=== PATIENT | female | born 1980 | race Caucasian/White ===

== ENCOUNTER → 2016-08-04 | Outpatient (CLI) | payer OTHER ==
[2016-08-04 14:50] LABS: CH 32.4; CHCM 35.5; HDW 2.79; HGB 12.6 gm/dL (11.4-16.0); MCH 31.3 pg (25.0-35.0); MCHC 34.1 g/dL (31.0-37.0); MCV 91.9 fL (80.0-100.0); Mean Platelet Volume 6.4; RBC 4.03 m/uL (3.80-5.40); WBC 9.3 k/uL (3.8-10.6)
[2016-08-04 14:56] LABS: Glucose 82 mg/dL (74-99); Non-African American GFR(MDRD) >60 (>60 ml/min/1.73 sqM)
[2016-08-04 15:28] LABS: Hepatitis B Surface Ag Index 0.05
--- NOTE | 2016-08-04 15:37 | US ---
EXAMINATION TYPE: US OB <= 14 wk fetus DATE OF EXAM: 08/04/2016 2:25 PM COMPARISON: NONE CLINICAL HISTORY: Z36 Confirm Dates. EXAM PERFORMED: Transabdominal (TA) EXAM MEASUREMENTS: GESTATIONAL AGE / DATING Physician Established: not established Dates by LMP: (12 weeks/0 days) EDC: 02/16/17 Dates by First Scan: no prior Dates by Current Scan for: (13 weeks/1 days) EDC: 02/08/17 MATERNAL ANATOMY Uterus: 15.3 x 6.7 x 8.5cm Right Ovary: unable to visualize Left Ovary: 3.2 x 2.7 x 1.3cm Post CDS / Adnexa: appears wnl Presence of free fluid: no Presence of corpus luteal cyst: yes, hypoechoic area left ovary = 1.4 x 1.1 x 1.3cm GESTATION / SURVEY CRL: 6.8cm (13 weeks/1 days) Yolk Sac (normal less than 6mm): not seen Heart Rate: 155 bpm Rhythm: Normal IUP: Viable IUP Date of LMP: 05/12/16 Beta HcG (if available): unavailable TECHNOLOGIST IMPRESSION: Single viable IUP 13wks/1day with JULIETA of 02/08/17. Probable corpus luteum l eft ovary. IMPRESSION: Viable intrauterine gestation with a gestational age of 13 weeks 1 day +/- 7 days. Estimated date of confinement based on this examination is a 2017.
== END | disposition home or self-care (01) ==
LOC: RADUSWWP 13:55
PROVIDERS: ATTEND Obstetrics & Gynecology
DX: Z36 Encounter for antenatal screening of mother (principal); Z34.01 Encounter for supervision of normal first pregnancy, first trimester; Z3A.13 13 weeks gestation of pregnancy
CPT/HCPCS: 76801; 82565; 82947; 85027; 86762; 86780; 86850; 86900; 86901; 87340

== ENCOUNTER → 2016-08-06 | Outpatient (CLI) | payer OTHER ==
[2016-08-07 08:26] LABS: Mis test requested (Non-blood) TP Urine 24Hr
== END | disposition home or self-care (01) ==
LOC: LABPRL 16:17
PROVIDERS: ATTEND Obstetrics & Gynecology
DX: I10 Essential (primary) hypertension (principal)
CPT/HCPCS: 81050; 84156

== ENCOUNTER → 2016-09-15 | Outpatient (CLI) | payer OTHER ==
--- NOTE | 2016-09-15 11:34 | US ---
EXAMINATION TYPE: US OB anatomy transabd DATE OF EXAM: 09/15/2016 11:20 AM COMPARISON: Previous study dated 08/04/2016. HISTORY: LGA TECHNIQUE: EXAM MEASUREMENTS: GESTATIONAL AGE / DATING Physician Established: (19 weeks/1 days) EDC: 02/08/2017 Dates by LMP: (18 weeks/0 days) EDC: 02/16/2017 Dates by First Scan: (19 weeks/0 days) EDC: 02/08/2017 Dates by Current Scan for: (19 weeks/2 days) EDC: 02/07/2017 SURVEY IUP: Single PLACENTA: Anterior PREVIA: No previa CONRAD: 11.1 cm Normal CERVICAL LENGTH (transabdominal: norm > 3.0cm): 4.2 cm BIOMETRY PRESENTATION: Breech BPD: 4.6 cm 20 weeks / 0 days HC: 16.3 cm 19 weeks / 0 days AC: 13.7 cm weeks / 1 days FL: 3.0 cm weeks / 3 days ESTIMATED WEIGHT IN GRAMS: 282 grams ESTIMATED WEIGHT IN LBS/OZS: 0 lbs. 10 oz. WEIGHT PERCENTAGE BASED ON ESTABLISHED DATE: 52 % HC/AC: 1.2 FL/AC: 22 HEART RATE: 152 bpm RHYTHM: Normal ANATOMY SEEN (within normal limits): * Lateral Vent (< 1 cm) 0.7 cm * Cisterna Magna (< 1.1 cm) 0.4 cm * Nuchal Fold (< 0.6 cm) 0.2 cm * Cerebellum (varies with age) 1.9 cm Choroid Plexus (bilateral) Midline Falx Cavus Septi Pellucidi Four Chamber Heart Outflow tracts: LVOT/RVOT Stomach Situs Nose / Lips Diaphragm Kidneys (bilateral) Bladder Cord Insert Three Vessel Cord Longitudinal Spine Transverse Spine Arms (bilateral) Legs (bilateral) Growth according to dates ALAN contraction seen at beginning of scan is beginning to subside at end of scan and it is visible th at placental tip is not near os. IMPRESSION: ODONNELL FETUS PRESENT IN A BREECH PRESENTATION WITH A GESTATIONAL AGE OF 19 WEEKS 2 DAYS +/- 12 DAY S. ESTIMATED DATE OF CONFINEMENT BASED ON THIS EXAMINATION IS 02/07/2017
== END | disposition home or self-care (01) ==
LOC: RADUSWWP 10:44
PROVIDERS: ATTEND Obstetrics & Gynecology
DX: O32.1XX0 Maternal care for breech presentation, not applicable or unspecified (principal); Z3A.19 19 weeks gestation of pregnancy
CPT/HCPCS: 76811

== ENCOUNTER → 2016-10-22 | Outpatient (CLI) | payer OTHER ==
[2016-10-22 09:59] LABS: CH 32.9; CHCM 35.3; HCT 37.1 % (34.0-46.0); HDW 3.07; HGB 12.7 gm/dL (11.4-16.0); MCH 32.1 pg (25.0-35.0); MCHC 34.2 g/dL (31.0-37.0); Mean Platelet Volume 6.4; RBC 3.94 m/uL (3.80-5.40); RDW 14.3 % (11.5-15.5); WBC 9.3 k/uL (3.8-10.6)
== END | disposition home or self-care (01) ==
LOC: LABWHC1 08:05
PROVIDERS: ATTEND Obstetrics & Gynecology
DX: Z34.02 Encounter for supervision of normal first pregnancy, second trimester (principal); Z3A.00 Weeks of gestation of pregnancy not specified
CPT/HCPCS: 36415; 82950; 85027

== ENCOUNTER 2016-11-18 12:29 | Outpatient (CLI) | payer OTHER ==
[2016-11-18] MEDS ORDERED: MAGNESIUM SULFATE-WATER PMX 4 GM in WATER FOR INJECTION 50 50ML.BAG IVPB ONE (13:02)
[2016-11-18 13:03] LABS: Basophils % (A) 0 %; CH 33.4; Eosinophils # (A) 0.1 k/uL (0-0.7); Eosinophils % (A) 2 %; HCT 36.5 % (34.0-46.0); HDW 2.94; HGB 12.5 gm/dL (11.4-16.0); Luc % (Auto) 1; Lymphocytes # (A) 1.1 k/uL (1.0-4.8); Lymphocytes % (A) 12 %; MCHC 34.3 g/dL (31.0-37.0); MCV 93.3 fL (80.0-100.0); Mean Platelet Volume 7.9; Monocytes # (A) 0.4 k/uL (0-1.0); Monocytes % (A) 5 %; Neutrophils # (A) 6.8 k/uL (1.3-7.7); Neutrophils % (A) 80 %; RBC 3.91 m/uL (3.80-5.40); RDW 13.6 % (11.5-15.5); WBC 8.5 k/uL (3.8-10.6); WBC (Perox) 8.81
[2016-11-18] MEDS ORDERED: LABETALOL 5 MG/ML VIAL MDV IVP SCH (13:15)
[2016-11-18] MEDS ORDERED: LABETALOL 5 MG/ML VIAL MDV IVP ONE (13:15)
[2016-11-18] MEDS ORDERED: MAGNESIUM SULFATE-WATER PMX 20 GM in WATER FOR INJECTION 1 500ML.BAG IV SCH (13:15)
[2016-11-18] MEDS ORDERED: LACTATED RINGERS 1,000 ML IV SCH (13:15)
[2016-11-18 13:17] LABS: ALT 28 U/L (9-52); AST 21 U/L (14-36); Blood Urea Nitrogen 5 mg/dL (7-17); Non-African American GFR(MDRD) >60 (>60 ml/min/1.73 sqM); Uric Acid 3.6 mg/dL (3.7-7.4)
[2016-11-18] MEDS ORDERED: BETAMET ACET-BETAMETH SOD PHOS 6 MG/ML VIAL IM SCH (13:30)
--- NOTE | 2016-11-18 13:41 | P.HPOB ---
History of Present Illness H&P Date: 11/18/16 Chief Complaint: Hypertension in . This patient is a pleasant 36-year-old 1 para 0 female estimated date of confinement 02/08/2017 estimated gestational age 28-2/7 weeks who presented to my office today for OB visit. Patient's history is such that she initially saw me in 11 weeks for her first OB visit. At that time blood pressure was 152- 158/96. Patient has no previous history diagnosis of chronic hypertension but it was assumed at this time. Patient was placed on labetalol 100 mg twice a day. She was also started on low-dose aspirin at that time. 24-hour urine was done which was normal however most recently repeat 24-hour urine showed her to be 667 mg. Patient was referred to maternal- medicine which she saw on Thursday. A repeat 24-hour urine did come down however today blood pressure in the office is 162/100. Patient denies headaches or other signs and symptoms. Blood work today is normal. Pressures here in labor and delivery around 170s over 100s. I did discuss this with Dr. Melba Voss the maternal- medicine specialist and she recommended treatment with IV labetalol, magnesium sulfate, Celestone, and transferred to the tertiary facility for further evaluation and treatment. Review of Systems Constitutional: Denies chills, Denies fever Ears, nose, mouth and throat: Denies headache, Denies sore throat Cardiovascular: Denies chest pain, Denies shortness of breath Respiratory: Denies cough Gastrointestinal: Denies abdominal pain, Denies diarrhea, Denies nausea, Denies vomiting Genitourinary: Reports , Denies dysuria, Denies hematuria Menstruation: Reports amenorrhea Past Medical History Past Medical History: No Reported History History of Any Multi-Drug Resistant Organisms: None Reported Past Surgical History: No Surgical Hx Reported Smoking Status: Never smoker Past Drug Use History: None Reported Medications and Allergies Home Medications Medication Instructions Recorded Confirmed Type Aspirin [Adult Low Dose Aspirin EC] 81 mg PO 11/18/16 History Labetalol [Trandate] 100 mg PO BID 11/18/16 11/18/16 History Pnv,Calcium 72/Iron/Folic Acid 1 tab PO DAILY 11/18/16 11/18/16 History [ Plus Tablet] Allergies Allergy/AdvReac Type Severity Reaction Status Date / Time Sulfa (Sulfonamide Allergy Rash/Hives Verified 11/18/16 12:34 Antibiotics) Exam - Vital Signs Vital signs: Intake and Output 11/17/16 11/18/16 11/18/16 22:59 06:59 14:59 Other: Weight 66.224 kg Patient Weight 11/19/16 06:59 Weight 66.224 kg - OBG Physical Exam Abdomen: bowel sounds normal, no diffuse tenderness, no bruit present, no guarding noted, no hepatomegaly, no splenomegaly, no mass Uterus: enlarged (Fundal height is 30 cm.) Results Ultrasound per maternal medicine on Thursday showed an appropriately grown fetus with marginal cord insertion. Result Diagrams: 11/18/16 12:47 11/18/16 12:47 Abnormal Lab Results - Last 24 Hours (Table) 11/18/16 Range/Units 12:47 BUN 5 L (7-17) mg/dL Creatinine 0.50 L (0.52-1.04) mg/dL Uric Acid 3.6 L (3.7-7.4) mg/dL Assessment and Plan (1) Hypertension affecting in third trimester Narrative/Plan: This is a pleasant 36-year-old 1 para 0 female 28-2/7 weeks gestation with significant hypertension. At this time blood work and evaluation is not consistent with preeclampsia however this may be significant worsening of chronic hypertension. At this time are going to proceed with magnesium sulfate prophylaxis, antihypertensives, Celestone administration and transfer to maternal- medicine. I discussed this with Dr. Melba Voss and she agrees with this plan. Discussed this in detail with the patient and she is consented to transfer at this time. Status: Acute
--- NOTE | 2016-11-18 13:53 | P.DS ---
Providers Expected date of discharge: 11/18/16 Attending physician: Sahil Smith Primary care physician: Stated None - Discharge Diagnosis(es) (1) Hypertension affecting in third trimester Current Visit: Yes Status: Acute Hospital Course: Please see dictated H&P in this patient's admission and transfer. Brief summary is a pleasant 36-year-old 1 para 0 female 28 2/7 weeks gestation admitted to triage for evaluation of hypertension in the office. Patient continued to have significant blood pressure elevation here in labor and delivery. Preeclampsia labs were negative. I discussed maternal- medicine and they recommended transfer on magnesium sulfate and antihypertensive therapy which was instituted. Patient was transferred stable the EMS to [facility] labor and delivery. Patient Condition at Discharge: Stable Plan - Discharge Summary Discharge Medication List Aspirin [Adult Low Dose Aspirin EC] 81 mg PO 11/18/16 [History] Labetalol [Trandate] 100 mg PO BID 11/18/16 [History] Pnv,Calcium 72/Iron/Folic Acid [ Plus Tablet] 1 tab PO DAILY 11/18/16 [ History] Discharge Disposition: OTHER INSTITUTION NOT DEFINED
[2016-11-18 14:31] LABS: Appearance,Urine Clear (Clear); Bilirubin,Urine Negative (Negative); Glucose,Urine (UA) Negative (Negative); Ketones,Urine Negative (Negative); Leukocyte Esterase,Urine Negative (Negative); Nitrite,Urine Negative (Negative); Protein,Urine Negative (Negative); Specific Gravity,Urine 1.003 (1.001-1.035); UA Billing (MACRO vs. MICRO) CHEM; Urobilinogen,Urine <2.0 mg/dL (<2.0)
== END 2016-11-18 14:13 | disposition short-term general hospital (02) ==
LOC: FBPOP 12:29
PROVIDERS: ATTEND Obstetrics & Gynecology
DX: O16.3 Unspecified maternal hypertension, third trimester (principal); Z3A.28 28 weeks gestation of pregnancy
CPT/HCPCS: 59025; 99215; 96360; 96366; 96372; 96375; 51702; 82565; 84450; 84460; 84520; 84550; 85025; 81003; J3475 ×2; 96367

== ENCOUNTER → 2016-12-25 | Outpatient (CLI) | payer OTHER ==
[2016-12-25 17:52] LABS: CH 32.5; CHCM 35.2; HDW 3.13; HGB 10.4 gm/dL (11.4-16.0); MCH 32.3 pg (25.0-35.0); MCHC 34.8 g/dL (31.0-37.0); Mean Platelet Volume 6.9; RBC 3.23 m/uL (3.80-5.40); RDW 14.3 % (11.5-15.5); WBC 12.3 k/uL (3.8-10.6)
[2016-12-25 18:04] LABS: ALT 88 U/L (9-52); AST 23 U/L (14-36); Blood Urea Nitrogen 14 mg/dL (7-17); Non-African American GFR(MDRD) >60 (>60 ml/min/1.73 sqM)
== END | disposition home or self-care (01) ==
LOC: LABWHC1 16:38
PROVIDERS: ATTEND Obstetrics & Gynecology
DX: I10 Essential (primary) hypertension (principal)
CPT/HCPCS: 36415; 82565; 84450; 84460; 84520; 85027

== ENCOUNTER → 2017-01-08 | Outpatient (CLI) | payer OTHER ==
[2017-01-08 11:57] LABS: CH 32.4; CHCM 34.6; HCT 37.8 % (34.0-46.0); HDW 3.38; HGB 12.8 gm/dL (11.4-16.0); MCH 31.8 pg (25.0-35.0); MCHC 33.8 g/dL (31.0-37.0); MCV 94.2 fL (80.0-100.0); Mean Platelet Volume 6.2; RBC 4.02 m/uL (3.80-5.40); RDW 13.7 % (11.5-15.5); WBC 8.2 k/uL (3.8-10.6)
[2017-01-08 12:09] LABS: ALT 37 U/L (9-52); AST 19 U/L (14-36); Alkaline Phosphatase 102 U/L (38-126); Anion Gap 15 mmol/L; Blood Urea Nitrogen 10 mg/dL (7-17); Carbon Dioxide 24 mmol/L (22-30); Chloride 107 mmol/L (98-107); Glucose 106 mg/dL (74-99); Non-African American GFR(MDRD) >60 (>60 ml/min/1.73 sqM); Potassium 3.9 mmol/L (3.5-5.1); Sodium 146 mmol/L (137-145); Total Bilirubin 0.6 mg/dL (0.2-1.3); Total Protein 7.4 g/dL (6.3-8.2)
== END | disposition home or self-care (01) ==
LOC: LABWHC1 11:10
PROVIDERS: ATTEND Internal Medicine Cardiovascular Disease
DX: I10 Essential (primary) hypertension (principal)
CPT/HCPCS: 36415; 80053; 85027

== ENCOUNTER → 2019-06-07 | Outpatient (CLI) | payer MEDICAID, OTHER ==
--- NOTE | 2019-06-07 09:08 | CT ---
EXAMINATION TYPE: CT sinus wo con DATE OF EXAM: 06/07/2019 COMPARISON: NONE HISTORY: Chronic sinusitis per order. Dizziness for [address] DLP: 705.9 mGycm. Automated Exposure Control for Dose Reduction was Utilized. TECHNIQUE: CT scan of the sinuses is performed without contrast, axial images are obtained, coronal r eformatted images are also reviewed. FINDINGS: The paranasal sinuses including the frontal, ethmoid, sphenoid, and maxillary sinuses bila terally are well-aerated without suspicious opacification or air-fluid level. Mild mucosal thickening posteriorly right ethmoid sinus axial image 34 is present. The ostiomeatal complex is narrowed bilat erally on the coronal images due to antral mucosal thickening but remains patent bilaterally. Nasal s eptum is deviated to left of midline. Visualized portion of mastoid air cells show no abnormal opacification. The globes are intact bilate rally. Visualized portion of brain parenchyma is felt within normal limits. IMPRESSION: Some mild chronic paranasal sinus disease. No acute sinusitis identified.
== END | disposition home or self-care (01) ==
LOC: RADCTMAIN 07:20
PROVIDERS: ATTEND Family Medicine
DX: J32.9 Chronic sinusitis, unspecified (principal)
CPT/HCPCS: 70486

== ENCOUNTER → 2019-08-25 | Outpatient (CLI) | payer MEDICAID ==
--- NOTE | 2019-08-25 07:25 | US ---
EXAMINATION TYPE: US thyroid st tissue head/neck DATE OF EXAM: 08/25/2019 COMPARISON: NONE CLINICAL HISTORY: E04.9 Nontoxic goiter, unspecified. possible enlarged gland visualized by doctor. GLAND SIZE: Right Lobe: 4.4 x 1.7 x 1.7 cm Overall Parenchyma: homogenous Left Lobe: 4.5 x 1.5 x 1.4 cm Overall Parenchyma: homogeneous Isthmus Thickness: 0.4 cm NODULES RIGHT: # of nodules measured on right: 0 LEFT: # of nodules measured on left: 0 ISTHMUS: # of nodules measured in the isthmus: 0 Bilateral neck scanned, no evidence of lymphadenopathy. Few images demonstrate hypervascularity parti cularly of the right thyroid lobe. IMPRESSION: Homogeneous thyroid gland. Some images demonstrate slight hypervascularity. Correlate wit h serum laboratory values to exclude thyroiditis.
== END | disposition home or self-care (01) ==
LOC: RADUSWWP 06:51
PROVIDERS: ATTEND Family Medicine
DX: E07.89 Other specified disorders of thyroid (principal)
CPT/HCPCS: 76536

== ENCOUNTER → 2021-02-08 | Outpatient (CLI) | payer MEDICAID ==
--- NOTE | 2021-02-10 11:04 | CT ---
EXAMINATION TYPE: CT abdomen pelvis w con DATE OF EXAM: 02/08/2021 COMPARISON: None HISTORY: right pelvic pain x1.[address] DLP: 1027 mGycm CONTRAST: CT scan of the abdomen and pelvis is performed with Oral Contrast and with IV Contrast, patient injec ivet with 100 mL of Isovue 300. FINDINGS: LUNG BASES-: No visible nodule. No infiltrate. LIVER/GB: No calcified gallstones. No space occupying hepatic lesion. Biliary tree is of normal ca liber. PANCREAS: No inflammation. No distinct mass. SPLEEN: No splenic enlargement. Splenic cyst identified measuring 2.1 cm. ADRENALS: No nodule. No thickening. KIDNEYS/BLADDER: No hydronephrosis. 6 mm calculus lower pole right kidney. No additional calculi are evident of the right kidney. 2 mm left mid pole calculus seen. Additional 2 mm calculus lower pole l eft kidney. No distinct renal mass. Urinary bladder grossly unremarkable. BOWEL: Normal appendix. Normal bowel caliber. No inflammation. GENITAL ORGANS: No gross abnormality. LYMPH NODES: No greater than 1cm abdominal or pelvic lymph nodes are appreciated. AORTA: No significant abnormality. OSSEOUS STRUCTURES: No significant abnormality is seen. OTHER: No significant additional abnormality is seen. IMPRESSION: 1. Nonobstructing nephrolithiasis. 2. Simple splenic cyst.
== END | disposition home or self-care (01) ==
LOC: RADCTMAIN 14:43
PROVIDERS: ATTEND Family Medicine
DX: N20.0 Calculus of kidney (principal); D73.4 Cyst of spleen
CPT/HCPCS: 74177; Q9967

== ENCOUNTER → 2021-05-15 | Outpatient (CLI) | payer MEDICAID ==
--- NOTE | 2021-05-15 10:31 | CT ---
EXAMINATION TYPE: CT brain wo con DATE OF EXAM: 05/15/2021 COMPARISON: None HISTORY: Dizziness x [address] DLP: [address] of the brain was performed. The ventricles, basal cisterns and sulci overlying the cerebral convexities demonstrate a normal appe arance. There is no evidence for intracranial hemorrhage or sulcal effacement. No mass effects are seen. Osseous calvarium is intact. If symptoms persist consider MRI as clinically warranted. IMPRESSION: 1. No acute intracranial process is seen at this time.
== END | disposition home or self-care (01) ==
LOC: RADCTMAIN 09:50
PROVIDERS: ATTEND Family Medicine
DX: R42 Dizziness and giddiness (principal)
CPT/HCPCS: 70450

== ENCOUNTER → 2022-05-21 | Outpatient (CLI) | payer MEDICAID ==
--- NOTE | 2022-05-21 14:41 | MM ---
Reason for Exam: Clinical finding. Baseline mammogram. Indicated Problems: Pain of the left side (Global) for 3 Week(s). Patient History: Menarche at age 15. First Full-Term at age 37. Late child-bearing (after 30). Patient has history of breast feeding. Last menstrual period: 04/27/2022 Risk Values: Lindsey 5 year model risk: 0.8%. NCI Lifetime model risk: 13.6%. Prior Study Comparison: Patient's first Mammogram. Tissue Density: The breast tissue is extremely dense which could obscure a lesion on mammography. Findings: Analyzed By CAD. No suspicious calcifications identified. 2 nodular densities upper right breast measuring up to 4.6 mm approximately 7 cm from the nipple. No distinct nodule left breast. Overall Assessment: Incomplete: need additional imaging evaluation, BI-RAD 0 Management: Diagnostic Breast Ultrasound of both breasts. A clinical breast exam by your physician is recommended on an annual basis and results should be correlated with mammographic findings. This exam should not preclude additional follow-up of suspicious palpable abnormalities. Results were given to the patient verbally at the time of exam. Electronically signed and approved by: Americo Blas M.D. Radiologis
--- NOTE | 2022-05-21 15:18 | USB ---
Reason for Exam: Clinical finding. Patient History: Menarche at age 15. First Full-Term at age 37. Late child-bearing (after 30). Patient has history of breast feeding. Risk Values: Lindsey 5 year model risk: 0.8%. NCI Lifetime model risk: 13.6%. Technique: Method: Targeted. Findings: The whole breast of the left breast, the upper section of the breast of the right breast, the axilla of both breasts and the retroareolar of both breasts were scanned. No solid or cystic masses are identified within the left breast. The right breast demonstrates a 3 x 2 mm cyst. No solid masses evident. Mildly prominent ducts on left retroareolar region. Overall Assessment: Benign, BI-RAD 2 Management: Screening Mammogram of both breasts in 1 year. A clinical breast exam by your physician is recommended on an annual basis and results should be correlated with mammographic findings. This exam should not preclude additional follow-up of suspicious palpable abnormalities. Results were given to the patient verbally at the time of exam. Electronically signed and approved by: Americo Blas M.D. Radiologis
== END | disposition home or self-care (01) ==
LOC: RADMAMWWP 14:01
PROVIDERS: ATTEND Family Medicine
DX: N64.4 Mastodynia (principal)
CPT/HCPCS: 77066

== ENCOUNTER → 2023-09-02 | Outpatient (CLI) | payer OTHER ==
--- NOTE | 2023-09-02 18:44 | MM ---
Reason for Exam: Screening (asymptomatic). Last mammogram was performed 1 year(s) and 4 month(s) ago. Patient History: Menarche at age 15. First Full-Term at age 37. Late child-bearing (after 30). Premenopausal. Patient has history of breast feeding. Risk Values: Lindsey 5 year model risk: 0.8%. NCI Lifetime model risk: 13.5%. Prior Study Comparison: 05/21/2022 Bilateral MG diagnostic mammo w CAD JEFF[facility], [facility]. Tissue Density: The breasts are heterogeneously dense, which may obscure small masses. Findings: Analyzed By CAD. Asymmetric density located on the right MLO view at a middle depth just below the posterior nipple line has become more defined. Further evaluation is recommended. Otherwise, no significant change. Overall Assessment: Incomplete: need additional imaging evaluation, BI-RAD 0 Management: Special View Mammogram of the right breast. Diagnostic Breast Ultrasound of the right breast. Additional views to include spot 3-D MLO and 3-D lateral views. Targeted right breast ultrasound if any persisting other bony. [facility] will attempt to contact patient to return for supplemental views and ultrasound if indicated. Electronically signed and approved by: Jerica Mata M.D. Radiologist
== END | disposition home or self-care (01) ==
LOC: RADMAMWWP 09:29
PROVIDERS: ATTEND Obstetrics & Gynecology Obstetrics
DX: Z12.31 Encounter for screening mammogram for malignant neoplasm of breast (principal)
CPT/HCPCS: 77067

== ENCOUNTER → 2023-09-02 | Outpatient (CLI) | payer OTHER ==
[2023-09-02 17:12] LABS: Chol/HDL Ratio 2.83 Ratio; LDL Cholesterol,Calculated 87.7 mg/dL (0.0-131.0)
== END | disposition home or self-care (01) ==
LOC: LABWHC1 09:31
PROVIDERS: ATTEND Family Medicine
DX: Z13.1 Encounter for screening for diabetes mellitus (principal); Z13.220 Encounter for screening for lipoid disorders
CPT/HCPCS: 36415; 80061; 83036

== ENCOUNTER → 2023-09-04 | Outpatient (CLI) | payer OTHER ==
--- NOTE | 2023-09-04 13:51 | MM ---
Reason for Exam: Additional evaluation requested from abnormal screening. Last screening mammogram was performed less than 1 month ago. Patient History: Menarche at age 15. First Full-Term at age 37. Late child-bearing (after 30). Premenopausal. Patient has history of breast feeding. Last menstrual period: 08/14/2023 Risk Values: Lindsey 5 year model risk: 0.8%. NCI Lifetime model risk: 13.5%. Prior Study Comparison: 05/21/2022 Bilateral MG diagnostic mammo w CAD JEFFREY, [facility]. 05/21/2022 Bilateral US breast limited [facility], [facility]. 09/02/2023 Bilateral MG screening mammo w CAD, [facility]. Tissue Density: Right: The breasts are heterogeneously dense, which may obscure small masses. Findings: Analyzed By CAD. The questioned area of asymmetric density on the MLO view middle depth just below the retroareolar plane disperses on additional views. Findings compatible with superimposition shadow. Overall Assessment: Benign, BI-RAD 2 Management: Screening Mammogram of both breasts in 1 year. . Results were given to the patient verbally at the time of exam. Patient should continue monthly self-breast exams. A clinical breast exam by your physician is recommended on an annual basis. This exam should not preclude additional follow-up of suspicious palpable abnormalities. Note on Lindsey scores and lifetime risk: 1. A Lindsey score greater than 3% is considered moderate risk. If this is the case, consider specialist referral to assess eligibility for a risk reducing agent. 2. If overall lifetime risk for the development of breast cancer is 20% or higher, the patient may qualify for future screening with alternating mammogram and breast MRI. Electronically signed and approved by: Jerica Mata M.D. Radiologist
== END | disposition home or self-care (01) ==
LOC: RADMAMWWP 13:17
PROVIDERS: ATTEND Obstetrics & Gynecology Obstetrics
DX: R92.331 Mammographic heterogeneous density, right breast (principal)
CPT/HCPCS: 77061; 77065

== ENCOUNTER → 2023-09-14 | Outpatient (CLI) | payer OTHER ==
--- NOTE | 2023-09-14 13:48 | US ---
EXAMINATION TYPE: US gallbladder DATE OF EXAM: 09/14/2023 COMPARISON: NONE CLINICAL INDICATION: Female, 43 years old with history of R10.11 RUQ PAIN; Intermittent RUQ pain TECHNIQUE: Multiple sonographic images of the right upper quadrant are obtained. FINDINGS: EXAM MEASUREMENTS: Liver Length: 14.8 cm Gallbladder Wall: 0.2 cm CBD: 0.3 cm Right Kidney: 10.8 x 5.0 x 4.3 cm SALOONKEEPER NOTES: Technical limitations due to large amount of overlying bowel gas Pancreas: visualized portions appear wnl Liver: wnl Gallbladder: no evidence of stones as visualized Evidence for sonographic Voss's sign: no CBD: wnl Right Kidney: stone lower pole = 0.7cm . No hydronephrosis IMPRESSION: 1. Inferior pole 0.7 cm right renal stone without obstruction. 2. Some limitation due to bowel gas.
[2023-09-14 21:52] LABS: HCT 40.9 % (37.2-46.3); MCH 31.3 pg (27.0-32.0); MCHC 34.2 g/dL (32.0-37.0); MCV 91.5 FL (80.0-97.0); Mean Platelet Volume 8.9 FL (9.5-12.2); NRBC Per 100 WBC 0 X 10*3/uL (0.00-0.01); Platelet Count 267 X 10*3/uL (140-440); RBC 4.47 X 10*6/uL (4.10-5.20); RDW 12.7 % (11.5-14.5); WBC 5.42 X 10*3/uL (4.50-10.00)
[2023-09-14 21:57] LABS: ALT 38 U/L (8-44); AST 19 U/L (13-35); Albumin 4.7 g/dL (3.8-4.9); Albumin/Globulin Ratio 1.74 Ratio (1.60-3.17); Alkaline Phosphatase 93 U/L (41-126); BUN/Creat Ratio 12.33 Ratio (12.00-20.00); Blood Urea Nitrogen 7.4 mg/dL (9.0-27.0); Calcium 9.5 mg/dL (8.7-10.3); Carbon Dioxide 25.8 mmol/L (21.6-31.8); Chloride 102 mmol/L (96-109); Globulin 2.7 g/dL (1.6-3.3); Glucose 95 mg/dL (70-110); Potassium 3.9 mmol/L (3.5-5.5); Sodium 139 mmol/L (135-145); Total Bilirubin 0.5 mg/dL (0.3-1.2); Total Protein 7.4 g/dL (6.2-8.2)
== END | disposition home or self-care (01) ==
LOC: RADUSWWP 12:48
PROVIDERS: ATTEND Family Medicine
DX: N20.0 Calculus of kidney (principal); R10.11 Right upper quadrant pain
CPT/HCPCS: 36415; 76705; 80053; 85027

== ENCOUNTER 2023-11-27 12:46 | Day surgery (SDC) | payer OTHER ==
[~2023-11-27 12:46] MED LIST: LIDOCAINE 1% (10MG/ML) FOR IV START INTRADERMA PRN; MIDAZOLAM 2 MG/2 ML VIAL IV PRN
[2023-11-27 14:13] VITALS: TEMP 98.5
[2023-11-27] MEDS: LACTATED RINGERS 1,000 ML IV SCH (14:17)
[2023-11-27] MEDS ORDERED: PROPOFOL 10 MG/ML 20 ML VIAL IV ONE (15:02)
[2023-11-27] MEDS ORDERED: LIDOCAINE 1% INJ 10MG/ML (20 ML MDV) ONE (15:02)
--- NOTE | 2023-11-27 15:21 | P.PCN ---
Date of Procedure: 11/27/23 Procedure(s) Performed: BRIEF HISTORY: Patient is a 43-year-old pleasant white female scheduled for an elective colonoscopy as a part of evaluation change in bowel habits for the last 2 years duration. PROCEDURE PERFORMED: Colonoscopy with random biopsies. PREOPERATIVE DIAGNOSIS: Change in bowel habits. IV sedation per Anesthesia. PROCEDURE: After informed consent was obtained, the patient, was brought into the endoscopy unit. IV sedation was administered by Anesthesia under continuous monitoring. Digital rectal examination was normal. Initially the Olympus CF-160 flexible video colonoscope was then inserted in the rectum, gradually advanced into the cecum without any difficulty. Careful examination was performed as the scope was gradually being withdrawn. Ileocecal valve and the appendiceal orifice were visualized and appeared normal. Terminal ileum was intubated 50 cm visualized and appeared normal. Prep was excellent. Mucosa of the cecum, ascending colon, transverse colon, descending colon, sigmoid colon, and rectum appeared normal. Biopsies were done from the ascending and descending colon to rule out microscopic/collagenous colitis retroflexion was performed in the rectum and no lesions were seen. The patient tolerated the procedure well. IMPRESSION: Normal-appearing colon from rectum to cecum no evidence of colitis or colorectal neoplasia. RECOMMENDATIONS: Findings of this examination were discussed with the patient as well as her family. She was advised to limit the biopsy results and have repeat screening colonoscopy in 10 years..
[2023-11-27 15:51] VITALS: BP 123/70; PULSE 90; RESP 20
== END 2023-11-27 15:56 | disposition home or self-care (01) ==
LOC: ORWHC2ENDO 12:46
PROVIDERS: ATTEND Internal Medicine Gastroenterology
DX: R19.4 Change in bowel habit (principal); I10 Essential (primary) hypertension; Z88.2 Allergy status to sulfonamides; Z79.899 Other long term (current) drug therapy
CPT/HCPCS: 45380; J2001; J2704; 88305

== ENCOUNTER → 2024-10-26 | Outpatient (CLI) | payer BC ==
--- NOTE | 2024-10-26 10:25 | MM ---
Reason for Exam: Screening (asymptomatic). Last mammogram was performed 1 year(s) and 2 month(s) ago. Patient History: Menarche at age 15. First Full-Term at age 37. Late child-bearing (after 30). Premenopausal. Patient has history of breast feeding. Risk Values: Lindsey 5 year model risk: 0.9%. NCI Lifetime model risk: 13.4%. Prior Study Comparison: 05/21/2022 Bilateral MG diagnostic mammo w CAD [facility], [facility] 09/02/2023 Bilateral MG screening mammo w CAD, [facility]. 09/04/2023 Right MG 3D work up w/cad RT, [facility]. Tissue Density: The breasts are extremely dense, which lowers the sensitivity of mammography. Findings: Analyzed By CAD. Right breast: There is no suspicious group of microcalcifications or new suspicious mass. Left breast: There is no suspicious group of microcalcifications or new suspicious mass. Overall Assessment: Negative, BI-RAD 1 Management: Screening Mammogram of both breasts in [address] [facility] will attempt to contact patient to return for supplemental views and ultrasound if indicated. Patient should continue monthly self-breast exams. A clinical breast exam by your physician is recommended on an annual basis. This exam should not preclude additional follow-up of suspicious palpable abnormalities. Note on Lindsey scores and lifetime risk: 1. A Lindsey score greater than 3% is considered moderate risk. If this is the case, consider specialist referral to assess eligibility for a risk reducing agent. 2. If overall lifetime risk for the development of breast cancer is 20% or higher, the patient may qualify for future screening with alternating mammogram and breast MRI. [facility], , 10/26/2024 10:22 AM. Electronically signed and approved by: Levi Amos DO
== END | disposition home or self-care (01) ==
LOC: RADMAMWWP 09:23
PROVIDERS: ATTEND Family Medicine
DX: Z12.31 Encounter for screening mammogram for malignant neoplasm of breast (principal); R92.343 Mammographic extreme density, bilateral breasts
CPT/HCPCS: 77063; 77067